=== PATIENT | male | born 1950 | race Caucasian/White ===

== ENCOUNTER 2017-05-08 23:30 | Emergency (ER) | payer MEDICARE, OTHER ==
[~2017-05-08] VITALS: Ht 193 cm; Wt 106.8 kg
[2017-05-08 23:52] VITALS: BP 133/72; PULSE 106; RESP 20; O2SAT 95
[2017-05-09 00:55] LABS: BASOPHILS % (AUTO) 0.2 % (0-3); EOSINOPHILS % (AUTO) 1.1 % (0-5); MONOCYTES % (AUTO) 8.1 % (4-12); Mean Corpuscular Hemoglobin 31.5 pg (27.0-35.0); Mean Corpuscular Volume 91.7 fL (81-100); NEUTROPHILS % (AUTO) 79.1 % (40-74); Platelet Count 189 bil/L (150-400)
[2017-05-09 01:36] LABS: Magnesium 1.8 mg/dL (1.6-2.6)
--- NOTE | 2017-05-09 01:38 | ED.REPORT ---
HPI-Extremity Problem Upper Date of Service May 09, 2017 ED Provider: Dr. Bryan Pt is a 67 year old male presenting to the ED complaining of gradually worsening redness and swelling to his left knee onset a week ago. Associated symptoms include a fever and chills. Pt reports that he was fishing and didn't notice the redness on his knee right away. He denies any significant injury. He saw his PCP today and was started on Dicloxacil. Denies hx of MRSA or staph infection. Denies SOB, wheezing, nausea, vomiting or diarrhea. Nursing Notes Stated Complaint: FEVER, LEFT LEG INFECTION Chief Complaint: General Complaint Nursing Notes Reviewed: Yes General Time Seen by MD: 01:37 Chief Complaint Other (Left knee redness) Hx Obtained From: Patient Arrived By: Walk-in Onset Occurred: 1 week ago Symptom Duration: Since onset Associated with: Reports: Fever Recent Healthcare: No recent doctor visit, No recent hospitalization Similar Sx Previous: No Past Medical History Past Medical History denies Past Surgical History denies Smoking History Unknown if Ever Smoker Ambulatory Status Independent Review of Systems Constitutional: Reports: Chills, Fever Skin: Reports Rash Complete sys rev & neg: except as marked. Respiratory: Denies: Shortness of breath, Wheezing GI: Denies: Diarrhea, Nausea, Vomiting Physical Exam Initial Vital Signs Vital Signs (First) Date Time Temp Pulse Resp B/P Pulse Ox O2 Delivery O2 Flow Rate FiO2 05/08/17 23:52 37.6 106 20 133/72 95 Room Air Initial VS: Reviewed, Vital signs abnormal General/Constitutional: Well-developed, Well-nourished Head / Eyes: Atraumatic, Normocephalic, PERRL ENT: Mucous membranes moist, Conjunctiva normal, No scleral icterus Neck: Supple, Non-tender, Full range of motion Respiratory: Breath sounds normal, Clear to auscultation, No respiratory distress Cardiovascular: Regular rate & rhythm, Heart sounds normal, Intact distal pulses Abdomen / GI: Soft, Non-tender, No guarding, No rebound, No distention Neurologic: Alert, Oriented, Nonfocal Psychiatric: Mood/affect normal, Behavior normal, Normal thought content Skin: Warm, Dry, Intact Hand sized erythema and swelling to the medial left knee, which had spread about 0.5 cm past the outer edge marked this morning Interpretation & Diagnostics Lab Results Interpretation Result Diagram: 05/09/17 0048 05/09/17 0048 Test 05/09/17 00:48 05/09/17 00:54 05/09/17 00:56 White Blood Count 9.7th/mm3 (3.8-10.1) Red Blood Count 4.47mil/mm3 (4.40-5.80) Hemoglobin 14.1g/dL (13.8-17.2) Hematocrit 41.0% (41.0-50.0) Mean Corpuscular Volume 91.7fL (81-100) Mean Corpuscular Hemoglobin 31.5pg (27.0-35.0) Mean Corpuscular Hemoglobin Concent 34.4% (32.0-37.0) Red Cell Distribution Width 13.0% (12.3-15.4) Platelet Count 189bil/L (150-400) Neutrophils (%) (Auto) 79.1% (40-74) Lymphocytes (%) (Auto) 11.2% (14-46) Monocytes (%) (Auto) 8.1% (4-12) Eosinophils (%) (Auto) 1.1% (0-5) Basophils (%) (Auto) 0.2% (0-3) Sodium Level 135mEq/L (134-144) Potassium Level 4.5mEq/L (3.5-5.2) Chloride Level 100mEq/L (97-108) Carbon Dioxide Level 20mmol/L (18-29) Blood Urea Nitrogen 13mg/dL (8-27) Creatinine 0.66mg/dL (0.76-1.27) Estimat Glomerular Filtration Rate 128mL/min (>59) Glucose Level 104mg/dL (60-99) Calcium Level 9.1mg/dL (8.5-10.1) Magnesium Level 1.8mg/dL (1.6-2.6) Total Bilirubin 0.4mg/dL (0.0-1.2) Aspartate Amino Transf (AST/SGOT) 39U/L (0-50) Alanine Aminotransferase (ALT/SGPT) 47U/L (0-44) Alkaline Phosphatase 111U/L (25-160) Total Protein 6.9g/dL (6.4-8.4) Albumin 4.0g/dL (3.4-5.0) Lipase 24U/L (13-60) Hold Gupta Top Tube Received (Received) Lactic Acid Level 1.6mmol/L (0.4-2.0) Lab values outside NL range: no clinical significance. Lab Results Interpretation: No evidence of systemic infection at this time Re-Eval/Medical Decision Med Decision/Clinical Course 67-year-old with spontaneous cellulitis of the left medial knee. He had been placed on dicloxacillin and is not improving. Will change antibiotic to clindamycin for the MRSA coverage. First dose given IV. Labs are encouraging for no systemic infection. Re-Evaluation/Progress : Time of Eval: 03:34 Patient Status: Condition improved Re-Evaluation/Progress Note: Discussed plan for discharge. Pt understands and agrees. Counseled Regarding: Diagnosis, Lab results, Need for follow-up, When/why to return to ED Discharge & Departure Impression: Primary Impression: Cellulitis of left knee Disposition: Home Discharge Condition All VS Reviewed: Yes Condition: Improved Patient Instructions: Cellulitis (ED) Additional Instructions: The laboratory values indicate this is not serious or overwhelming infection. Stop the dicloxacillin. You were given clindamycin 900 mg IV. Continue clindamycin 300 mg by mouth 4 times a day, prepack dispensed. Warm compresses. Follow-up with your regular doctor if you get persistent fever or increasing redness in the knee. Referrals: Harper Palacios (PCP) Jie Attestation Portions of this note were transcribed by Deejay Thomas. I, Dr. Bryan personally performed the history, physical exam and medical decision-making; I reviewed and confirmed the accuracy of the information in the transcribed note. Signed by: Jie Lanza, 05/09/2017. copies to: Harper Palacios Howard L MD May 09, 2017 01:38 DEEJAY THOMAS May 09, 2017 02:04
[2017-05-09] MEDS ORDERED: Clindamycin Inj 900 MG in IV Premix 1 EACH IV ONE (02:05)
[2017-05-09] MEDS ORDERED: 0.9% Sodium Chloride 1,000 ML IV ONE (02:05)
[2017-05-09 04:01] VITALS: BP 128/82; PULSE 76; RESP 18; O2SAT 98
[2017-05-09] MEDS ORDERED: _Clindamycin 150 mg Capsule PO SCH (06:30)
== END 2017-05-09 04:06 | disposition home or self-care (01) ==
LOC: SED 23:30
DX: L03.116 Cellulitis of left lower limb (principal); R50.9 Fever, unspecified
CPT/HCPCS: 36415; 80053; 83605; 83690; 83735; 85025; 87040; 96365; 99284; J3490; J7030